=== PATIENT | female | born 1960 | race Caucasian/White ===

== ENCOUNTER 2016-09-07 12:42 | Inpatient (IN) | payer MEDICAID, OTHER ==
[2016-09-07] MEDS ORDERED: ADENOCARD INJ 6 MG IVP ONE (12:56)
[2016-09-07] MEDS ORDERED: NS 1000 ML 1,000 ML ONE (12:56)
--- NOTE | 2016-09-07 12:57 | DR.GENAD ---
HPI - PCP Primary Care Physician: Orestes - Complaint/Symptoms Chief Complaint Doctors Comments: Patient states that her hear is beating fast. She states that she should have come in on yesterday but thought it would have stop by now. She denies fever, vomiting or diarrhea. PMH - PMH Past Medical History: Anxiety, Depression Past Surgical History: Yes Surgical History: Hysterectomy - Family History Family Medical History: [place], Coronary Artery Disease - Social History Do you use any recreational Drugs:: No ROS - Review of Systems Constitutional: No Symptoms Reported. negative: Diaphoresis Eyes: No Symptoms Reported ENTM: No Symptoms Reported Respiratoy: No Symptoms Reported Cardiovascular: No Symptoms Reported Gastrointestinal/Abdominal: No Symptoms Reported Genitourinary: No Symptoms Reported Neurological: No Symptoms Reported Musculoskeletal: No Symptoms Reported Integumentary: No Symptoms Reported Hematologic/Lymphatic: No Symptoms Reported Endocrine: No Symptoms Reported Psychiatric: No Symptoms Reported All Other Systems: Reviewed and Negative PE - Vital Signs Vitals: Temperature 98.6 F Pulse Rate [Brachial] 69 Pulse Rate 190 Respiratory Rate 18 Blood Pressure [Right Arm] 110/67 Blood Pressure [Left Arm] 100/59 Blood Pressure 98/63 O2 Sat by Pulse Oximetry 100 - General Limitations: No Limitations General Appearance: Alert, In No Apparent Distress - Head Head Exam: Normal Inspection, Atraumatic - Eyes Eye exam: Normal Appearance, PERRL, EOMI - ENT ENT Exam: Normal Exam External Ear Exam: Normal External Inspection TM/Canal Exam: Bilateral Normal Nose Exam: Normal Nose Exam Mouth Exam: Normal Inspection Throat Exam: Normal Inspection - Neck Neck Exam: Normal Inspection, Full ROM - Chest Chest Inspection: Normal Inspection - Respiratory Respiratory Exam: Normal Lung Sounds Bilat Respiratory Exam: Bilateral Clear to Auscultation - Cardiovascular Cardiovascular Exam: Regular Rate, Normal Rhythm, Bradycardia - Abdominal Exam Abdominal Exam: Normal Inspection Abdominal Tenderness: negative: RUQ, RLQ, LUQ, LLQ, Epigastrium, Suprapubic, Diffuse, Mild, Moderate, Severe, Other - Extremities Extremities Exam: Normal Inspection - Back Back Exam: Normal Inspection - Neurologic Neurological Exam: Alert, Oriented X3, CN II-XII Intact - Psychiatric Psychiatric Exam: Normal Affect - Skin Skin Exam: Warm, Dry, Intact Course - Treatment Treatment: Adenosine x1,NS; CTA secondary to elevated D Dimer-Impression: No CT evidence of pulmionary embolus in apreciated.-large amount of stool seen within the visualized ortions of the desconding colon. - Reevaluation 1st: Improved - Consultation Called: 16:00 (Dr Franco returned called-agreed to admit for observationn) ROR - Labs Reviewed Result Diagrams: 09/07/16 13:04 09/07/16 13:04 Laboratory: WBC 7.4 X10^3/uL (3.6-10.0) 09/07/16 13:04 RBC 4.04 X10^6/uL (3.5-5.4) 09/07/16 13:04 Hgb 9.3 g/dL (12.0-16.0) L 09/07/16 13:04 Hct 30.5 % (36.0-47.0) L 09/07/16 13:04 MCV 75.5 fL (80.0-100.0) L 09/07/16 13:04 MCH 23.1 pg (27.0-34.0) L 09/07/16 13:04 MCHC 30.6 g/dL (33.0-35.0) L 09/07/16 13:04 RDW 22.7 % (11.6-16.5) H 09/07/16 13:04 Plt Count 370 X10^3/uL (150.0-450.0) 09/07/16 13:04 Plt Count Comment Adequate (ADEQUATE) 09/07/16 13:04 MPV 9.5 fL (7.4-11.0) 09/07/16 13:04 Neut % 61.5 % (42.0-75.0) 09/07/16 13:04 Lymph % 29.6 % (21.0-51.0) 09/07/16 13:04 [place] % 5.5 % (0.0-13.0) 09/07/16 13:04 Eos % 2.7 % (0.9-2.9) 09/07/16 13:04 Baso % 0.7 % (0.2-1.0) 09/07/16 13:04 Neut # 4.6 x10^3/uL (2.2-4.8) 09/07/16 13:04 Lymph # 2.2 X10^3/uL (1.3-2.9) 09/07/16 13:04 [place] # 0.4 x10^3/uL (0.3-0.8) 09/07/16 13:04 Eos # 0.2 x10^3/uL (0.0-0.2) 09/07/16 13:04 Baso # 0.1 X10^3/uL (0.0-0.1) 09/07/16 13:04 Absolute Nucleated RBC 0.0 /100WBC 09/07/16 13:04 Plt Morphology Comment Normal (NORMAL) 09/07/16 13:04 RBC Morphology Abnormal (NORMAL) A 09/07/16 13:04 Hypochromasia 2+ A 09/07/16 13:04 Poikilocytosis 1+ A 09/07/16 13:04 Anisocytosis 1+ A 09/07/16 13:04 Microcytosis 1+ A 09/07/16 13:04 INR Target Range - 09/07/16 13:04 INR 1.02 (0.8-1.3) 09/07/16 13:04 PTT 27.2 SECONDS (22.9-36.5) 09/07/16 13:04 PTT Comment - 09/07/16 13:04 D-Dimer 967 ng/mL (0-400) H* 09/07/16 13:04 Sodium 140 mmol/L (136-145) 09/07/16 13:04 Corrected Sodium 141 mmol/L (136-145) 09/07/16 13:04 Potassium 3.9 mmol/L (3.5-5.1) 09/07/16 13:04 Chloride 106 mmol/L (98-107) 09/07/16 13:04 Carbon Dioxide 25.9 mmol/L (21-32) 09/07/16 13:04 BUN 15 mg/dL (7-18) 09/07/16 13:04 Creatinine 1.14 mg/dL (0.55-1.02) H 09/07/16 13:04 Est GFR (MDRD) Af Amer > 60 (>60) 09/07/16 13:04 Est GFR (MDRD) Non-Af 53 (>60) L 09/07/16 13:04 Glucose 135 mg/dL (65-99) H 09/07/16 13:04 Calcium 9.4 mg/dL (8.5-10.1) 09/07/16 13:04 Corrected Calcium TNP 09/07/16 13:04 Magnesium 1.7 mg/dL (1.7-2.9) 09/07/16 13:04 Total Bilirubin 0.40 mg/dL (0.2-1.0) 09/07/16 13:04 AST 114 Units/L (15-37) H 09/07/16 13:04 ALT 53 Units/L (12-78) 09/07/16 13:04 Alkaline Phosphatase 289 Units/L (46-116) H 09/07/16 13:04 Creatine Kinase 75 Units/L (26-192) 09/07/16 13:04 CK-MB (CK-2) < 1.0 ng/mL (0-4.0) 09/07/16 13:04 CK/CKMB % Calc 1.3 % (<4) 09/07/16 13:04 Troponin I < 0.02 ng/mL (0-1.5) 09/07/16 13:04 Total Protein 7.9 g/dL (6.4-8.2) 09/07/16 13:04 Albumin 3.6 g/dL (3.4-5.0) 09/07/16 13:04 Globulin 4.3 g/dL (2.5-4.5) 09/07/16 13:04 Albumin/Globulin Ratio 0.8 Ratio (1.1-2.1) L 09/07/16 13:04 - XRAY XRAY Interpreted by: Radiologist - Diagnosis Discharge Problem: SVT (supraventricular tachycardia) - Discharge Plan Condition: Stable - Follow ups/Referrals Follow ups/Referrals: ANA LAURA RAI [Primary Care Provider] - 3 days - Instructions
[2016-09-07 13:10] LABS: BASOPHILS # (AUTO) 0.1 X10^3/uL (0.0-0.1); BASOPHILS % (AUTO) 0.7 % (0.2-1.0); EOSINOPHILS # (AUTO) 0.2 x10^3/uL (0.0-0.2); EOSINOPHILS % (AUTO) 2.7 % (0.9-2.9); HEMATOCRIT 30.5 % (36.0-47.0); HEMOGLOBIN 9.3 g/dL (12.0-16.0); LYMPHOCYTES # (AUTO) 2.2 X10^3/uL (1.3-2.9); LYMPHOCYTES % (AUTO) 29.6 % (21.0-51.0); MEAN CORPUSCULAR HEMOGLOBIN 23.1 pg (27.0-34.0); MEAN CORPUSCULAR HGB CONC 30.6 g/dL (33.0-35.0); MEAN CORPUSCULAR VOLUME 75.5 fL (80.0-100.0); MEAN PLATELET VOLUME 9.5 fL (7.4-11.0); MONOCYTES # (AUTO) 0.4 x10^3/uL (0.3-0.8); MONOCYTES % (AUTO) 5.5 % (0.0-13.0); NEUTROPHILS # (AUTO) 4.6 x10^3/uL (2.2-4.8); NEUTROPHILS % (AUTO) 61.5 % (42.0-75.0); PLATELET COUNT 370 X10^3/uL (150.0-450.0); RED BLOOD COUNT 4.04 X10^6/uL (3.5-5.4); RED CELL DISTRIBUTION WIDTH 22.7 % (11.6-16.5); WHITE BLOOD COUNT 7.4 X10^3/uL (3.6-10.0)
[2016-09-07 13:25] LABS: ANISOCYTOSIS 1+; HYPOCHROMASIA 2+; PLATELET MORPHOLOGY COMMENT NORMAL (NORMAL); POIKILOCYTOSIS 1+
[2016-09-07 13:26] LABS: ALBUMIN 3.6 g/dL (3.4-5.0); CHLORIDE 106 mmol/L (98-107); CREATININE 1.14 mg/dL (0.55-1.02); MAGNESIUM 1.7 mg/dL (1.7-2.9); MICROCYTOSIS 1+; eGFR BLACK RACES > 60 (>60); eGFR NON BLACK RACES 53 (>60)
--- NOTE | 2016-09-07 13:27 | RAD ---
Single view chest series: Indication: Chest pain, shortness of breath. Comparison: Acute abdominal series dated January 16, 2013. Findings/impression: Lung volumes are normal without acute cardiopulmonary abnormality. There is no cardiomegaly. The osseous thorax is unremarkable. Reported By:
[2016-09-07 13:43] LABS: BLOOD UREA NITROGEN 15 mg/dL (7-18); CALCIUM 9.4 mg/dL (8.5-10.1); CARBON DIOXIDE 25.9 mmol/L (21-32); COR NA(FOR HYPERGLY) 141 mmol/L (136-145); GLUCOSE 135 mg/dL (65-99); SODIUM 140 mmol/L (136-145); TROPONIN I < 0.02 ng/mL (0-1.5)
[2016-09-07 13:49] LABS: ALANINE AMINOTRANSFERASE 53 Units/L (12-78); ALKALINE PHOSPHATASE 289 Units/L (46-116); ASPARTATE AMINO TRANSFERASE 114 Units/L (15-37); CREATINE KINASE 75 Units/L (26-192); CREATINE KINASE MB < 1.0 ng/mL (0-4.0); TOTAL PROTEIN 7.9 g/dL (6.4-8.2)
[2016-09-07 13:50] LABS: D DIMER 967 ng/mL (0-400)
[2016-09-07 13:53] LABS: CKMB % 1.3 % (<4)
[2016-09-07] MEDS ORDERED: NS 1000 ML 1,000 ML IV SCH (14:00)
[2016-09-07] MEDS ORDERED: NS 100 ML IV 100 ML IV ONE (14:26)
--- NOTE | 2016-09-07 14:59 | CT ---
HISTORY: Elevated D-dimer, elevated heart rate Study: CT chest with contrast Comparison: None Technique: Multiple axial images of the chest were obtained from the thoracic inlet to the upper abd omen with the administration of IV contrast. Coronal and sagittal reformatted 3 dimensional MIP imag es were also submitted utilizing CTA protocol. Findings: Scattered subcentimeter lymph nodes are seen within the mediastinum. There is no pericardial effusi on observed. The thoracic aorta is normal in its contour without evidence for aneurysmal dilatation . No definite filling defects are appreciated within the 1st or 2nd order branches of the pulmonary arterial system. Atelectasis is noted within the lung bases. Evaluation of the lung parenchyma fail s to demonstrate focal consolidation or effusion. Postoperative changes of the [place] sided region are noted. Surgical clips are noted within the gallbladder fossa. Fluid and pain suspected large randal unt of stool are seen within the visualized portions of the descending colon. IMPRESSION: 1. No CT evidence of pulmonary embolus is appreciated. Reported By:
[2016-09-07] MEDS ORDERED: ZOFRAN INJ 4 MG VIAL IVP PRN (16:31)
[2016-09-07] MEDS ORDERED: NS 1000 ML 1,000 ML with POTASSIUM CHLORIDE INJ 20 MEQ VIAL 20 MEQ IV SCH ×2 (17:00)
[2016-09-07] MEDS ORDERED: NS + KCL 20 MEQ/L 1,000 ML IV ONE (17:32)
[2016-09-07] MEDS ORDERED: LEXAPRO ONE (20:40)
[2016-09-07] MEDS: WELLBUTRIN SR 150 MG (BID) PO SCH (20:43)
[2016-09-07] MEDS: LEXAPRO PO SCH (20:44)
[2016-09-07] MEDS: LOPRESSOR TAB 25 MG PO SCH (20:44)
[2016-09-07] MEDS: CITROMA PO SCH (20:44)
[2016-09-07] MEDS: SUBOXONE TAB SL SCH (21:51)
[2016-09-07] MEDS: XANAX PO SCH (21:52)
[2016-09-07] MEDS: NEURONTIN CAP 400 MG PO SCH (22:23)
[2016-09-08] MEDS: NS + KCL 20 MEQ/L 1,000 ML IV SCH ×3 (01:47→18:41)
[2016-09-08 05:05] LABS: BASOPHILS % (AUTO) 0.3 % (0.2-1.0); EOSINOPHILS # (AUTO) 0.1 x10^3/uL (0.0-0.2); EOSINOPHILS % (AUTO) 2.6 % (0.9-2.9); HEMATOCRIT 25.8 % (36.0-47.0); HEMOGLOBIN 7.8 g/dL (12.0-16.0); LYMPHOCYTES # (AUTO) 1.7 X10^3/uL (1.3-2.9); LYMPHOCYTES % (AUTO) 30.9 % (21.0-51.0); MEAN CORPUSCULAR HEMOGLOBIN 23.2 pg (27.0-34.0); MEAN CORPUSCULAR HGB CONC 30.2 g/dL (33.0-35.0); MEAN CORPUSCULAR VOLUME 76.9 fL (80.0-100.0); MEAN PLATELET VOLUME 10.4 fL (7.4-11.0); MONOCYTES # (AUTO) 0.5 x10^3/uL (0.3-0.8); MONOCYTES % (AUTO) 9.3 % (0.0-13.0); NEUTROPHILS # (AUTO) 3.2 x10^3/uL (2.2-4.8); NEUTROPHILS % (AUTO) 56.9 % (42.0-75.0); PLATELET COUNT 276 X10^3/uL (150.0-450.0); RED BLOOD COUNT 3.35 X10^6/uL (3.5-5.4); RED CELL DISTRIBUTION WIDTH 22.7 % (11.6-16.5); WHITE BLOOD COUNT 5.6 X10^3/uL (3.6-10.0)
[2016-09-08 05:20] LABS: ALANINE AMINOTRANSFERASE 146 Units/L (12-78); ALBUMIN 2.8 g/dL (3.4-5.0); ALKALINE PHOSPHATASE 353 Units/L (46-116); ASPARTATE AMINO TRANSFERASE 327 Units/L (15-37); BLOOD UREA NITROGEN 14 mg/dL (7-18); CALCIUM 8.1 mg/dL (8.5-10.1); CARBON DIOXIDE 27.3 mmol/L (21-32); CHLORIDE 109 mmol/L (98-107); COR CA(FOR HYPOALB) 9.1 mg/dL (8.5-10.1); CREATININE 0.81 mg/dL (0.55-1.02); GLUCOSE 92 mg/dL (65-99); SODIUM 142 mmol/L (136-145); TOTAL PROTEIN 6.4 g/dL (6.4-8.2); eGFR BLACK RACES > 60 (>60); eGFR NON BLACK RACES > 60 (>60)
[2016-09-08 05:34] LABS: ANISOCYTOSIS 2+; HYPOCHROMASIA 1+; PLATELET MORPHOLOGY COMMENT NORMAL (NORMAL)
[2016-09-08] MEDS: NEURONTIN CAP 400 MG PO SCH ×3 (05:40→21:00)
[2016-09-08] MEDS ORDERED: LEXAPRO ONE ×3 (08:54→20:29)
[2016-09-08] MEDS: LEXAPRO PO SCH ×2 (09:14→21:01)
[2016-09-08] MEDS: XANAX PO SCH ×2 (09:15→21:01)
[2016-09-08] MEDS: SUBOXONE TAB SL SCH ×2 (09:15→21:04)
[2016-09-08] MEDS: WELLBUTRIN SR 150 MG (BID) PO SCH ×2 (09:15→21:00)
[2016-09-08] MEDS: LOPRESSOR TAB 25 MG PO SCH ×2 (09:18→21:04)
--- NOTE | 2016-09-08 19:23 | DR.H&P ---
H&P - History & Physical for Day of: H&P Date: 09/08/16 - Chief Complaint Chief Complaint: HEART RACING - Allergies Allergies/Adverse Reactions: Allergies Allergy/AdvReac Type Severity Reaction Status Date / Time morphine Allergy Verified 09/07/16 17:22 prochlorperazine Allergy Verified 09/07/16 17:22 [From Compazine] Sulfa (Sulfonamide Allergy Verified 09/07/16 17:22 Antibiotics) [SULFA] - History of Present Illness History of Present Illness: Mrs. Washington is a 56-year-old white female who was admitted from the emergency room. Patient was noted to be in SVT on arrival and was treated with adenosine IV. Patient returned to normal sinus rhythm on EKG. Patient states she has had multiple episodes of SVT in the past however has never seen a formula room worker or had an echocardiogram. Plan to admit patient for further evaluation. Patient's past medical history is a gastric bypass and and a long history of anemia. - Past Medical History Past Medical History: Anxiety, Depression - Past Surgical History Surgical History: Cholecystectomy, Hysterectomy, Other - Family History Family Medical History: [place], Coronary Artery Disease - Social History Does patient currently use any type of tobacco product: Yes Have you used tobacco products in the last 12 months: Yes Type of Tobacco Use: Cigarettes Does any household member use tobacco: No Alcohol Use: None Drug Use: None - Medications Home Medications: Alprazolam [Xanax 1 mg] 1 tab PO BID 09/07/16 [History Confirmed 09/07/16] Buprenorphine / Naloxone [SUBOXONE TABLET 8 MG/2 MG *] 1 ea PO BID 09/07/16 [ History Confirmed 09/07/16] Bupropion Sr (Bid) [Wellbutrin Sr 150 mg (Bid)] 150 mg PO BID 09/07/16 [History Confirmed 09/07/16] Escitalopram Oxalate [Lexapro 20 mg] 20 mg PO BID 09/07/16 [History Confirmed ] Metoprolol Tartrate [Lopressor Tab 25 mg] 25 mg PO BID 09/07/16 [History Confirmed 09/07/16] Misc Home Med [Patient's Home Medication] 1 ea PO BID PRN 09/07/16 [History Confirmed 09/07/16] - Review of Systems Constitutional: Weakness ENT: No Symptoms Reported Respiratory: Shortness of Breath Cardiovascular: Chest Pain, Palpitations Gastrointestinal: No Symptoms Reported Genitourinary: No Symptoms Reported Musculoskeletal: No Symptoms Reported Skin: No Symptoms Reported Neurological: No Symptoms Reported - Physical Exam Vital Signs: Temperature 97.7 F Pulse Rate [Brachial] 54 Respiratory Rate 18 Blood Pressure [Right Arm] 99/58 O2 Sat by Pulse Oximetry 96 Oriented: Normal Eyes: Normal Ear: Normal Nose: Normal Throat: Normal Respiratory: Clear Throughout Cardiovascular: Tachycardia Auscultation: Bowel Sounds: Normal Palpation: Normal Tenderness: Normal Skin: Normal Musculoskeletal: Normal Psychiatric: Anxiety, Depression Speech Pattern: Clear, Appropriate - Assessment/Plan (1) Chest pain Qualifiers: Chest pain type: C Ischemic chest pain type: I Status: Acute Plan: ADMIT, CARDIAC MONITORING, IV HYDRATION, SERIAL EKG'S CARDIAC ENZYMES, MONITOR BP AND LIPID (2) SVT (supraventricular tachycardia) Status: Acute (3) Constipation Qualifiers: Constipation type: C Status: Acute (4) Anemia Qualifiers: Anemia type: A Iron deficiency anemia type: I Vitamin B12 deficiency anemia type: V Folate deficiency anemia type: F Bone marrow failure anemia type: B Hemolytic anemia type: H Other causes of anemia: O Chronic kidney disease stage: C Status: Acute
--- NOTE | 2016-09-08 19:28 | PCM.PROG ---
Progress Note - Progress Note for Day of Date: 09/08/16 - Subjective Subjective: patient is a 56-year-old white female who was admitted one day ago with a new complaint of chest pain, palpitations, SVT. Patient was treated for SVT in the emergency room, currently normal sinus rhythm. Patient was noted to have anemia this morning hemoglobin 7.8. Plan to obtain an anemia panel, thyroid studies, echocardiogram and occult stool. - Past Medical Family Social History Past Med/Fam/Surg Hx: No changes since H&P Allergies: Allergies morphine Allergy (Verified 09/07/16 17:22) prochlorperazine [From Compazine] Allergy (Verified 09/07/16 17:22) Sulfa (Sulfonamide Antibiotics) [SULFA] Allergy (Verified 09/07/16 17:22) - Review of Systems ROS: No change since H&P - Vital Signs and I&O's Vital Signs: Temperature 97.7 F Pulse Rate [Brachial] 54 Respiratory Rate 18 Blood Pressure [Right Arm] 99/58 O2 Sat by Pulse Oximetry 96 Intake and Output: Intake & Output 09/06/16 09/07/16 09/08/16 09/09/16 11:59 11:59 11:59 11:59 Intake Total 2220 924 Balance 2220 924 - Physical Exam Oriented: Normal Eyes: Normal Ear: Normal Nose: Normal Throat: Normal Respiratory: Normal Cardiovascular: Tachycardia Auscultation: Bowel Sounds: Normal Tenderness: Normal Skin: Normal Musculoskeletal: Normal Psychiatric: Anxiety, Depression Speech Pattern: Clear, Appropriate - Laboratory and Diagnostics Result Diagrams: 09/08/16 04:00 09/08/16 04:00 Labs: Laboratory WBC 5.6 X10^3/uL (3.6-10.0) 09/08/16 04:00 RBC 3.35 X10^6/uL (3.5-5.4) L 09/08/16 04:00 Hgb 7.8 g/dL (12.0-16.0) L 09/08/16 04:00 Hct 25.8 % (36.0-47.0) L 09/08/16 04:00 MCV 76.9 fL (80.0-100.0) L 09/08/16 04:00 MCH 23.2 pg (27.0-34.0) L 09/08/16 04:00 MCHC 30.2 g/dL (33.0-35.0) L 09/08/16 04:00 RDW 22.7 % (11.6-16.5) H 09/08/16 04:00 Plt Count 276 X10^3/uL (150.0-450.0) 09/08/16 04:00 Plt Count Comment Adequate (ADEQUATE) 09/08/16 04:00 MPV 10.4 fL (7.4-11.0) 09/08/16 04:00 Neut % 56.9 % (42.0-75.0) 09/08/16 04:00 Lymph % 30.9 % (21.0-51.0) 09/08/16 04:00 [place] % 9.3 % (0.0-13.0) 09/08/16 04:00 Eos % 2.6 % (0.9-2.9) 09/08/16 04:00 Baso % 0.3 % (0.2-1.0) 09/08/16 04:00 Neut # 3.2 x10^3/uL (2.2-4.8) 09/08/16 04:00 Lymph # 1.7 X10^3/uL (1.3-2.9) 09/08/16 04:00 [place] # 0.5 x10^3/uL (0.3-0.8) 09/08/16 04:00 Eos # 0.1 x10^3/uL (0.0-0.2) 09/08/16 04:00 Baso # 0.0 X10^3/uL (0.0-0.1) 09/08/16 04:00 Absolute Nucleated RBC 0.0 /100WBC 09/08/16 04:00 Plt Morphology Comment Normal (NORMAL) 09/08/16 04:00 RBC Morphology Abnormal (NORMAL) A 09/08/16 04:00 Hypochromasia 1+ A 09/08/16 04:00 Poikilocytosis 1+ A 09/07/16 13:04 Anisocytosis 2+ A 09/08/16 04:00 Microcytosis 1+ A 09/07/16 13:04 INR Target Range - 09/07/16 13:04 INR 1.02 (0.8-1.3) 09/07/16 13:04 PTT 27.2 SECONDS (22.9-36.5) 09/07/16 13:04 PTT Comment - 09/07/16 13:04 D-Dimer 967 ng/mL (0-400) H* 09/07/16 13:04 Sodium 142 mmol/L (136-145) 09/08/16 04:00 Corrected Sodium TNP 09/08/16 04:00 Potassium 4.5 mmol/L (3.5-5.1) 09/08/16 04:00 Chloride 109 mmol/L (98-107) H 09/08/16 04:00 Carbon Dioxide 27.3 mmol/L (21-32) 09/08/16 04:00 BUN 14 mg/dL (7-18) 09/08/16 04:00 Creatinine 0.81 mg/dL (0.55-1.02) 09/08/16 04:00 Est GFR (MDRD) Af Amer > 60 (>60) 09/08/16 04:00 Est GFR (MDRD) Non-Af > 60 (>60) 09/08/16 04:00 Glucose 92 mg/dL (65-99) 09/08/16 04:00 Calcium 8.1 mg/dL (8.5-10.1) L 09/08/16 04:00 Corrected Calcium 9.1 mg/dL (8.5-10.1) 09/08/16 04:00 Magnesium 1.7 mg/dL (1.7-2.9) 09/07/16 13:04 Total Bilirubin 0.30 mg/dL (0.2-1.0) 09/08/16 04:00 AST 327 Units/L (15-37) H 09/08/16 04:00 ALT 146 Units/L (12-78) H 09/08/16 04:00 Alkaline Phosphatase 353 Units/L (46-116) H 09/08/16 04:00 Creatine Kinase 75 Units/L (26-192) 09/07/16 13:04 CK-MB (CK-2) < 1.0 ng/mL (0-4.0) 09/07/16 13:04 CK/CKMB % Calc 1.3 % (<4) 09/07/16 13:04 Troponin I < 0.02 ng/mL (0-1.5) 09/07/16 13:04 Total Protein 6.4 g/dL (6.4-8.2) 09/08/16 04:00 Albumin 2.8 g/dL (3.4-5.0) L 09/08/16 04:00 Globulin 3.6 g/dL (2.5-4.5) 09/08/16 04:00 Albumin/Globulin Ratio 0.8 Ratio (1.1-2.1) L 09/08/16 04:00 - Plan (1) Chest pain Status: Acute Qualifiers: Chest pain type: C Ischemic chest pain type: I Plan: continue telemetry, bp monitoring. ECHO, lipid control (2) SVT (supraventricular tachycardia) Status: Acute Plan: bb therapy (3) Constipation Status: Acute Qualifiers: Constipation type: C Plan: pt reports, BM, will collect stool spec (4) Anemia Status: Acute Qualifiers: Anemia type: A Iron deficiency anemia type: I Vitamin B12 deficiency anemia type: V Folate deficiency anemia type: F Bone marrow failure anemia type: B Hemolytic anemia type: H Other causes of anemia: O Chronic kidney disease stage: C Plan: anemia PANEL
[2016-09-08] MEDS ORDERED: XANAX PO PRN (19:38)
[2016-09-08 20:58] LABS: FREE T4 (FREE THYROXINE) 0.95 ng/dL (0.76-1.46); TSH (3RD GENERATION) 1.376 uIU/mL (0.358-3.74)
[2016-09-08] MEDS: CITROMA PO SCH (21:04)
[2016-09-08 22:15] VITALS: BMI 27.6
[2016-09-09] MEDS: NS + KCL 20 MEQ/L 1,000 ML IV SCH ×2 (03:35→11:46)
[2016-09-09] MEDS: NEURONTIN CAP 400 MG PO SCH ×3 (05:35→21:00)
[2016-09-09 05:39] LABS: ALANINE AMINOTRANSFERASE 112 Units/L (12-78); ALBUMIN 2.9 g/dL (3.4-5.0); ALKALINE PHOSPHATASE 363 Units/L (46-116); ASPARTATE AMINO TRANSFERASE 120 Units/L (15-37); BLOOD UREA NITROGEN 14 mg/dL (7-18); CALCIUM 8.4 mg/dL (8.5-10.1); CARBON DIOXIDE 26.5 mmol/L (21-32); CHLORIDE 111 mmol/L (98-107); COR CA(FOR HYPOALB) 9.3 mg/dL (8.5-10.1); CREATININE 0.92 mg/dL (0.55-1.02); GLUCOSE 81 mg/dL (65-99); SODIUM 144 mmol/L (136-145); TOTAL PROTEIN 6.5 g/dL (6.4-8.2); eGFR BLACK RACES > 60 (>60); eGFR NON BLACK RACES > 60 (>60)
[2016-09-09 05:43] LABS: BASOPHILS % (AUTO) 0.4 % (0.2-1.0); EOSINOPHILS # (AUTO) 0.3 x10^3/uL (0.0-0.2); EOSINOPHILS % (AUTO) 5.9 % (0.9-2.9); HEMATOCRIT 26.7 % (36.0-47.0); LYMPHOCYTES # (AUTO) 1.7 X10^3/uL (1.3-2.9); LYMPHOCYTES % (AUTO) 35.2 % (21.0-51.0); MEAN CORPUSCULAR HEMOGLOBIN 23.1 pg (27.0-34.0); MEAN CORPUSCULAR HGB CONC 30.1 g/dL (33.0-35.0); MEAN CORPUSCULAR VOLUME 76.8 fL (80.0-100.0); MEAN PLATELET VOLUME 10.5 fL (7.4-11.0); MONOCYTES # (AUTO) 0.4 x10^3/uL (0.3-0.8); MONOCYTES % (AUTO) 8.2 % (0.0-13.0); NEUTROPHILS # (AUTO) 2.4 x10^3/uL (2.2-4.8); NEUTROPHILS % (AUTO) 50.3 % (42.0-75.0); PLATELET COUNT 237 X10^3/uL (150.0-450.0); RED BLOOD COUNT 3.47 X10^6/uL (3.5-5.4); RED CELL DISTRIBUTION WIDTH 22.5 % (11.6-16.5); WHITE BLOOD COUNT 4.8 X10^3/uL (3.6-10.0)
[2016-09-09 05:52] LABS: ANISOCYTOSIS 2+; HYPOCHROMASIA 1+; PLATELET MORPHOLOGY COMMENT NORMAL (NORMAL)
[2016-09-09] MEDS ORDERED: LEXAPRO ONE ×2 (08:15→20:46)
[2016-09-09] MEDS: XANAX PO SCH ×2 (08:22→21:00)
[2016-09-09] MEDS: SUBOXONE TAB SL SCH ×2 (08:22→20:59)
[2016-09-09] MEDS: LEXAPRO PO SCH ×2 (08:22→20:59)
[2016-09-09] MEDS: WELLBUTRIN SR 150 MG (BID) PO SCH ×2 (08:23→20:59)
[2016-09-09] MEDS: LOPRESSOR TAB 25 MG PO SCH ×3 (08:24→21:03)
[2016-09-09] MEDS ORDERED: NS 100 ML IV 100 ML with VENOFER 200 MG IV NR ×2 (15:00)
[2016-09-10 05:26] LABS: ALANINE AMINOTRANSFERASE 72 Units/L (12-78); ALBUMIN 2.8 g/dL (3.4-5.0); ALKALINE PHOSPHATASE 323 Units/L (46-116); ASPARTATE AMINO TRANSFERASE 53 Units/L (15-37); BLOOD UREA NITROGEN 12 mg/dL (7-18); CALCIUM 8.4 mg/dL (8.5-10.1); CARBON DIOXIDE 26.5 mmol/L (21-32); CHLORIDE 106 mmol/L (98-107); COR CA(FOR HYPOALB) 9.4 mg/dL (8.5-10.1); CREATININE 0.91 mg/dL (0.55-1.02); GLUCOSE 86 mg/dL (65-99); SODIUM 139 mmol/L (136-145); TOTAL PROTEIN 6.4 g/dL (6.4-8.2); eGFR BLACK RACES > 60 (>60); eGFR NON BLACK RACES > 60 (>60)
[2016-09-10 05:29] LABS: BASOPHILS # (AUTO) 0.1 X10^3/uL (0.0-0.1); BASOPHILS % (AUTO) 0.8 % (0.2-1.0); EOSINOPHILS # (AUTO) 0.3 x10^3/uL (0.0-0.2); EOSINOPHILS % (AUTO) 5.1 % (0.9-2.9); HEMATOCRIT 24.4 % (36.0-47.0); HEMOGLOBIN 7.6 g/dL (12.0-16.0); LYMPHOCYTES # (AUTO) 0.9 X10^3/uL (1.3-2.9); LYMPHOCYTES % (AUTO) 13.5 % (21.0-51.0); MEAN CORPUSCULAR HEMOGLOBIN 23.6 pg (27.0-34.0); MEAN CORPUSCULAR HGB CONC 31.2 g/dL (33.0-35.0); MEAN CORPUSCULAR VOLUME 75.5 fL (80.0-100.0); MEAN PLATELET VOLUME 10.4 fL (7.4-11.0); MONOCYTES # (AUTO) 0.4 x10^3/uL (0.3-0.8); MONOCYTES % (AUTO) 6.6 % (0.0-13.0); NEUTROPHILS # (AUTO) 4.8 x10^3/uL (2.2-4.8); PLATELET COUNT 255 X10^3/uL (150.0-450.0); RED BLOOD COUNT 3.23 X10^6/uL (3.5-5.4); RED CELL DISTRIBUTION WIDTH 22.3 % (11.6-16.5); WHITE BLOOD COUNT 6.5 X10^3/uL (3.6-10.0)
[2016-09-10] MEDS: NEURONTIN CAP 400 MG PO SCH (05:30)
[2016-09-10] MEDS: CITROMA PO SCH (05:31)
[2016-09-10] MEDS: NS + KCL 20 MEQ/L 1,000 ML IV SCH (05:46)
[2016-09-10 05:50] LABS: ANISOCYTOSIS 2+; HYPOCHROMASIA 1+; PLATELET MORPHOLOGY COMMENT NORMAL (NORMAL)
--- NOTE | 2016-09-10 10:45 | MRI ---
HISTORY: Elevated liver enzymes. Study: MRI abdomen without contrast. MRCP sequences were also performed. Comparison: CT chest dated September 07, 2016. Technique: Multiplanar/multi sequence imaging of the abdomen without contrast. MRCP sequences were a lso performed. Several sequences were mislabeled as pre contrast. Findings: Postsurgical changes of the upper abdomen. The gallbladder is surgically absent. The visualized live r, spleen, pancreas, adrenals, and kidneys appear normal. The common bile duct is dilated to 15 mm w ithout obvious stricture, stone, or mass. The visualized large and small bowel appear normal. The vi sualized heart and lungs appear normal. The musculoskeletal and neurovascular structures appear norm al. MRCP: Dilatation of the common bile duct to 15 mm. This is most likely secondary to prior cholecyste ctomy. No obvious stricture, obstructing mass, or obstructing stone. Remaining biliary system and pa ncreatic duct appear normal. IMPRESSION: 1. Nonspecific dilatation of the common bile duct to 15 mm. This most likely is secondary to prior cholecystectomy. No obvious stricture, mass, or stone. 2. Remaining exam is unremarkable. Reported By:
[2016-09-10] MEDS ORDERED: NS 100 ML IV 100 ML IV ONE (11:21)
[2016-09-10] MEDS ORDERED: LEXAPRO ONE (12:54)
--- NOTE | 2016-09-10 13:28 | CT ---
CT abdomen pelvis with contrast Indication: Abdominal pain with elevated LFTs Technique: Helical CT images of the abdomen and pelvis were obtained with IV contrast. Reformatted i mages in the coronal and sagittal planes were also generated for review. Comparison: MRI abdomen September 10, 2016 Findings: Apart from dependent atelectasis, the visualized lung bases are clear. No aggressive osseo us lesions are identified. The gallbladder is surgically absent. There is moderate intra as well as extrahepatic biliary dilata tion, with the common bile duct measuring up to 1.5 cm in diameter, but tapering normally at the lev el of the ampulla. Mild dilatation of the pancreatic duct within the pancreatic head is also seen. N o discrete mass, upstream pancreatic ductal dilatation or associated pancreatic atrophy is appreciat ed. The liver, spleen, adrenals and kidneys are unremarkable. The patient is post gastric by-pass. The G I tract, including the appendix is otherwise normal. The IVC, abdominal aorta and urinary bladder ar e normal. The patient is post hysterectomy. No free air, free fluid or lymphadenopathy is identified . Impression: Moderate intra and extrahepatic biliary dilatation as well as mild dilation of the distal pancreatic duct. Although findings may be related to prior cholecystectomy, given patient history of elevated LFTs, a stricture at the level of the ampulla cannot be excluded. Further evaluation with ERCP is re commended as clinically indicated. Reported By:
[2016-09-10 16:13] VITALS: BP 120/76
--- NOTE | 2016-09-10 18:02 | PCM.PROG ---
Progress Note - Progress Note for Day of Date: 09/10/16 - Subjective Subjective: patient is a 56-year-old white female who was admitted one day ago with a new complaint of chest pain, palpitations, SVT. Patient was treated for SVT in the emergency room, currently normal sinus rhythm. Pt was noted to be anemic with hx of gastric bypass. Pt NPO for edg per dr kauffman. Plan to obtain MRCP q am - Past Medical Family Social History Past Med/Fam/Surg Hx: No changes since H&P Allergies: Allergies morphine Allergy (Verified 09/07/16 17:22) prochlorperazine [From Compazine] Allergy (Verified 09/07/16 17:22) Sulfa (Sulfonamide Antibiotics) [SULFA] Allergy (Verified 09/07/16 17:22) - Review of Systems ROS: No change since H&P - Vital Signs and I&O's Vital Signs: Temperature 98 F Pulse Rate [Right Brachial] 58 Pulse Rate [Brachial] 69 Respiratory Rate 18 Blood Pressure [Right Arm] 120/76 Blood Pressure [Left Arm] 141/76 O2 Sat by Pulse Oximetry 92 Intake and Output: Intake & Output 09/08/16 09/09/16 09/10/16 09/11/16 11:59 11:59 11:59 11:59 Intake Total 2220 3284 1160 590 Balance 2220 3284 1160 590 - Physical Exam Oriented: Normal Eyes: Normal Ear: Normal Nose: Normal Throat: Normal Respiratory: Normal Cardiovascular: Tachycardia Auscultation: Bowel Sounds: Normal Tenderness: RUQ, LUQ, Epigastric Skin: Normal Musculoskeletal: Normal, Back:Lumbar Psychiatric: Anxiety, Depression Speech Pattern: Clear - Laboratory and Diagnostics Result Diagrams: 09/10/16 04:00 09/10/16 04:00 Labs: Laboratory WBC 6.5 X10^3/uL (3.6-10.0) 09/10/16 04:00 RBC 3.23 X10^6/uL (3.5-5.4) L 09/10/16 04:00 Hgb 7.6 g/dL (12.0-16.0) L 09/10/16 04:00 Hct 24.4 % (36.0-47.0) L 09/10/16 04:00 MCV 75.5 fL (80.0-100.0) L 09/10/16 04:00 MCH 23.6 pg (27.0-34.0) L 09/10/16 04:00 MCHC 31.2 g/dL (33.0-35.0) L 09/10/16 04:00 RDW 22.3 % (11.6-16.5) H 09/10/16 04:00 Plt Count 255 X10^3/uL (150.0-450.0) 09/10/16 04:00 Plt Count Comment Adequate (ADEQUATE) 09/10/16 04:00 MPV 10.4 fL (7.4-11.0) 09/10/16 04:00 Neut % 74.0 % (42.0-75.0) 09/10/16 04:00 Lymph % 13.5 % (21.0-51.0) L 09/10/16 04:00 [place] % 6.6 % (0.0-13.0) 09/10/16 04:00 Eos % 5.1 % (0.9-2.9) H 09/10/16 04:00 Baso % 0.8 % (0.2-1.0) 09/10/16 04:00 Neut # 4.8 x10^3/uL (2.2-4.8) 09/10/16 04:00 Lymph # 0.9 X10^3/uL (1.3-2.9) L 09/10/16 04:00 [place] # 0.4 x10^3/uL (0.3-0.8) 09/10/16 04:00 Eos # 0.3 x10^3/uL (0.0-0.2) H 09/10/16 04:00 Baso # 0.1 X10^3/uL (0.0-0.1) 09/10/16 04:00 Absolute Nucleated RBC 0.0 /100WBC 09/10/16 04:00 Plt Morphology Comment Normal (NORMAL) 09/10/16 04:00 RBC Morphology Abnormal (NORMAL) A 09/10/16 04:00 Hypochromasia 1+ A 09/10/16 04:00 Poikilocytosis 1+ A 09/07/16 13:04 Anisocytosis 2+ A 09/10/16 04:00 Microcytosis 1+ A 09/07/16 13:04 INR Target Range - 09/07/16 13:04 INR 1.02 (0.8-1.3) 09/07/16 13:04 PTT 27.2 SECONDS (22.9-36.5) 09/07/16 13:04 PTT Comment - 09/07/16 13:04 D-Dimer 967 ng/mL (0-400) H* 09/07/16 13:04 Sodium 139 mmol/L (136-145) 09/10/16 04:00 Corrected Sodium TNP 09/10/16 04:00 Potassium 4.5 mmol/L (3.5-5.1) 09/10/16 04:00 Chloride 106 mmol/L (98-107) 09/10/16 04:00 Carbon Dioxide 26.5 mmol/L (21-32) 09/10/16 04:00 BUN 12 mg/dL (7-18) 09/10/16 04:00 Creatinine 0.91 mg/dL (0.55-1.02) 09/10/16 04:00 Est GFR (MDRD) Af Amer > 60 (>60) 09/10/16 04:00 Est GFR (MDRD) Non-Af > 60 (>60) 09/10/16 04:00 Glucose 86 mg/dL (65-99) 09/10/16 04:00 Calcium 8.4 mg/dL (8.5-10.1) L 09/10/16 04:00 Corrected Calcium 9.4 mg/dL (8.5-10.1) 09/10/16 04:00 Magnesium 1.7 mg/dL (1.7-2.9) 09/07/16 13:04 Iron 14 ug/dL (50-175) L 09/08/16 04:00 Transferrin 291 mg/dL (202-364) 09/08/16 04:00 Ferritin 11 ng/mL (8-252) 09/08/16 04:00 Total Bilirubin 0.30 mg/dL (0.2-1.0) 09/10/16 04:00 AST 53 Units/L (15-37) H 09/10/16 04:00 ALT 72 Units/L (12-78) 09/10/16 04:00 Alkaline Phosphatase 323 Units/L (46-116) H 09/10/16 04:00 Creatine Kinase 75 Units/L (26-192) 09/07/16 13:04 CK-MB (CK-2) < 1.0 ng/mL (0-4.0) 09/07/16 13:04 CK/CKMB % Calc 1.3 % (<4) 09/07/16 13:04 Troponin I < 0.02 ng/mL (0-1.5) 09/07/16 13:04 Total Protein 6.4 g/dL (6.4-8.2) 09/10/16 04:00 Albumin 2.8 g/dL (3.4-5.0) L 09/10/16 04:00 Globulin 3.6 g/dL (2.5-4.5) 09/10/16 04:00 Albumin/Globulin Ratio 0.8 Ratio (1.1-2.1) L 09/10/16 04:00 Vitamin B12 340 pg/mL (193-986) 09/08/16 04:00 Folate 3.6 ng/mL (>8.6) L 09/08/16 04:00 Free T4 0.95 ng/dL (0.76-1.46) 09/08/16 04:00 TSH 3rd Generation 1.376 uIU/mL (0.358-3.74) 09/08/16 04:00 - Plan (1) Chest pain Status: Acute Qualifiers: Chest pain type: C Ischemic chest pain type: I Plan: deines cp this am, cardiacs normal. continue telemetry, bp monitoring. ECHO, lipid control (2) SVT (supraventricular tachycardia) Status: Acute Plan: bb therapy (3) Constipation Status: Acute Qualifiers: Constipation type: C Plan: pt reports, BM, will collect stool spec (4) Anemia Status: Acute Qualifiers: Anemia type: A Iron deficiency anemia type: I Vitamin B12 deficiency anemia type: V Folate deficiency anemia type: F Bone marrow failure anemia type: B Hemolytic anemia type: H Other causes of anemia: O Chronic kidney disease stage: C Plan: anemia PANEL (5) Epigastric pain Status: Acute Plan: hx anemia, gastric bypass. elevated liver enzymes. mrcp q am, npo for egd q am
--- NOTE | 2016-09-10 18:07 | PCM.PROG ---
Progress Note - Progress Note for Day of Date: 09/10/16 - Subjective Subjective: patient is a 56-year-old white female who was admitted one day ago with a new complaint of chest pain, palpitations, SVT. Patient was treated for SVT in the emergency room, currently normal sinus rhythm. MRCP this am due to elevated lft's. pt did not have EGD done because she ate lunch and was sedated due to self medicating per nursing staff. pt instructed to only take medication given by nurses and needs ct abd pelvis this am adn MRCP. she needs to be NPO. - Past Medical Family Social History Past Med/Fam/Surg Hx: No changes since H&P Allergies: Allergies morphine Allergy (Verified 09/07/16 17:22) prochlorperazine [From Compazine] Allergy (Verified 09/07/16 17:22) Sulfa (Sulfonamide Antibiotics) [SULFA] Allergy (Verified 09/07/16 17:22) - Review of Systems ROS: No change since H&P - Vital Signs and I&O's Vital Signs: Temperature 98 F Pulse Rate [Right Brachial] 58 Pulse Rate [Brachial] 69 Respiratory Rate 18 Blood Pressure [Right Arm] 120/76 Blood Pressure [Left Arm] 141/76 O2 Sat by Pulse Oximetry 92 Intake and Output: Intake & Output 09/08/16 09/09/16 09/10/16 09/11/16 11:59 11:59 11:59 11:59 Intake Total 2220 3284 1160 590 Balance 2220 3284 1160 590 - Physical Exam Oriented: Normal Eyes: Normal Ear: Normal Nose: Normal Throat: Normal Respiratory: Diminished Cardiovascular: Tachycardia Auscultation: Bowel Sounds: Normal Tenderness: RUQ, LUQ, Epigastric Skin: Normal Musculoskeletal: Normal, Back:Lumbar Psychiatric: Anxiety, Depression Speech Pattern: Clear - Laboratory and Diagnostics Result Diagrams: 09/10/16 04:00 09/10/16 04:00 Labs: Laboratory WBC 6.5 X10^3/uL (3.6-10.0) 09/10/16 04:00 RBC 3.23 X10^6/uL (3.5-5.4) L 09/10/16 04:00 Hgb 7.6 g/dL (12.0-16.0) L 09/10/16 04:00 Hct 24.4 % (36.0-47.0) L 09/10/16 04:00 MCV 75.5 fL (80.0-100.0) L 09/10/16 04:00 MCH 23.6 pg (27.0-34.0) L 09/10/16 04:00 MCHC 31.2 g/dL (33.0-35.0) L 09/10/16 04:00 RDW 22.3 % (11.6-16.5) H 09/10/16 04:00 Plt Count 255 X10^3/uL (150.0-450.0) 09/10/16 04:00 Plt Count Comment Adequate (ADEQUATE) 09/10/16 04:00 MPV 10.4 fL (7.4-11.0) 09/10/16 04:00 Neut % 74.0 % (42.0-75.0) 09/10/16 04:00 Lymph % 13.5 % (21.0-51.0) L 09/10/16 04:00 [place] % 6.6 % (0.0-13.0) 09/10/16 04:00 Eos % 5.1 % (0.9-2.9) H 09/10/16 04:00 Baso % 0.8 % (0.2-1.0) 09/10/16 04:00 Neut # 4.8 x10^3/uL (2.2-4.8) 09/10/16 04:00 Lymph # 0.9 X10^3/uL (1.3-2.9) L 09/10/16 04:00 [place] # 0.4 x10^3/uL (0.3-0.8) 09/10/16 04:00 Eos # 0.3 x10^3/uL (0.0-0.2) H 09/10/16 04:00 Baso # 0.1 X10^3/uL (0.0-0.1) 09/10/16 04:00 Absolute Nucleated RBC 0.0 /100WBC 09/10/16 04:00 Plt Morphology Comment Normal (NORMAL) 09/10/16 04:00 RBC Morphology Abnormal (NORMAL) A 09/10/16 04:00 Hypochromasia 1+ A 09/10/16 04:00 Poikilocytosis 1+ A 09/07/16 13:04 Anisocytosis 2+ A 09/10/16 04:00 Microcytosis 1+ A 09/07/16 13:04 INR Target Range - 09/07/16 13:04 INR 1.02 (0.8-1.3) 09/07/16 13:04 PTT 27.2 SECONDS (22.9-36.5) 09/07/16 13:04 PTT Comment - 09/07/16 13:04 D-Dimer 967 ng/mL (0-400) H* 09/07/16 13:04 Sodium 139 mmol/L (136-145) 09/10/16 04:00 Corrected Sodium TNP 09/10/16 04:00 Potassium 4.5 mmol/L (3.5-5.1) 09/10/16 04:00 Chloride 106 mmol/L (98-107) 09/10/16 04:00 Carbon Dioxide 26.5 mmol/L (21-32) 09/10/16 04:00 BUN 12 mg/dL (7-18) 09/10/16 04:00 Creatinine 0.91 mg/dL (0.55-1.02) 09/10/16 04:00 Est GFR (MDRD) Af Amer > 60 (>60) 09/10/16 04:00 Est GFR (MDRD) Non-Af > 60 (>60) 09/10/16 04:00 Glucose 86 mg/dL (65-99) 09/10/16 04:00 Calcium 8.4 mg/dL (8.5-10.1) L 09/10/16 04:00 Corrected Calcium 9.4 mg/dL (8.5-10.1) 09/10/16 04:00 Magnesium 1.7 mg/dL (1.7-2.9) 09/07/16 13:04 Iron 14 ug/dL (50-175) L 09/08/16 04:00 Transferrin 291 mg/dL (202-364) 09/08/16 04:00 Ferritin 11 ng/mL (8-252) 09/08/16 04:00 Total Bilirubin 0.30 mg/dL (0.2-1.0) 09/10/16 04:00 AST 53 Units/L (15-37) H 09/10/16 04:00 ALT 72 Units/L (12-78) 09/10/16 04:00 Alkaline Phosphatase 323 Units/L (46-116) H 09/10/16 04:00 Creatine Kinase 75 Units/L (26-192) 09/07/16 13:04 CK-MB (CK-2) < 1.0 ng/mL (0-4.0) 09/07/16 13:04 CK/CKMB % Calc 1.3 % (<4) 09/07/16 13:04 Troponin I < 0.02 ng/mL (0-1.5) 09/07/16 13:04 Total Protein 6.4 g/dL (6.4-8.2) 09/10/16 04:00 Albumin 2.8 g/dL (3.4-5.0) L 09/10/16 04:00 Globulin 3.6 g/dL (2.5-4.5) 09/10/16 04:00 Albumin/Globulin Ratio 0.8 Ratio (1.1-2.1) L 09/10/16 04:00 Vitamin B12 340 pg/mL (193-986) 09/08/16 04:00 Folate 3.6 ng/mL (>8.6) L 09/08/16 04:00 Free T4 0.95 ng/dL (0.76-1.46) 09/08/16 04:00 TSH 3rd Generation 1.376 uIU/mL (0.358-3.74) 09/08/16 04:00 - Plan (1) Epigastric pain Status: Acute Plan: hx anemia, gastric bypass. elevated liver enzymes. NPO FOR MRCP AND CT ABD THIS AM. CONTINUE IV HYDRATION, PAIN AND NAUSEA CONTROL (2) Chest pain Status: Acute Qualifiers: Chest pain type: C Ischemic chest pain type: I Plan: deines cp this am, cardiacs normal. continue telemetry, bp monitoring. ECHO, lipid control (3) SVT (supraventricular tachycardia) Status: Acute Plan: bb therapy (4) Constipation Status: Acute Qualifiers: Constipation type: C Plan: pt reports, BM, will collect stool spec (5) Anemia Status: Acute Qualifiers: Anemia type: A Iron deficiency anemia type: I Vitamin B12 deficiency anemia type: V Folate deficiency anemia type: F Bone marrow failure anemia type: B Hemolytic anemia type: H Other causes of anemia: O Chronic kidney disease stage: C Plan: anemia PANEL
== END 2016-09-10 17:50 | disposition home or self-care (01) | DRG 313 ==
LOC: ER 12:46 → MED/SURG 16:24
PROVIDERS: ADMIT Internal Medicine; ATTEND Internal Medicine
DX: R07.89 Other chest pain (principal); I47.1 Supraventricular tachycardia; R94.31 Abnormal electrocardiogram [ECG] [EKG]; F32.89 Other specified depressive episodes; F41.8 Other specified anxiety disorders; R06.02 Shortness of breath; D64.89 Other specified anemias; Z98.84 Bariatric surgery status; R10.13 Epigastric pain; E11.65 Type 2 diabetes mellitus with hyperglycemia; R74.8 Abnormal levels of other serum enzymes
CPT/HCPCS: 36415; 71010; 71275; 74177; 74181; 80053; 82378; 82550; 82553; 82607; 82728; 82746; 83540; 83735; 84439; 84443; 84466; 84481; 84484; 85025; 85378; 85610; 85730; 93005; 93010; 94760; 96365; 96367; 96374; 99284; A4222; S0106; J3480

== ENCOUNTER 2016-11-09 17:28 | Emergency (ER) | payer OTHER, MEDICAID ==
[2016-11-09 17:41] VITALS: BMI 25.1
--- NOTE | 2016-11-09 17:41 | DR.GENAD ---
HPI - HPI Comment HPI Comment: PATIENT HAVE INCREASING DIZZINESS AND NEAR SYNCOPAL EPISODES SINCE YESTERDAY. HAVING HEADACHE. NO NAUSEA OR VOMITING. NO FEVER OR DYSURIA. CHEST SORENESS THAT HAVE RESOLVE. COUGHING, NON PRODUCTIVE. DENIES EAR INFECTION OR PAIN. NO POST NASAL DRIP. - Complaint/Symptoms Chief Complaint Doctors Comments: DIZZINESS, NEAR SYNCOPAL EPISODES SINCE YEASTERDAY. - Nurses notes reviewed Nurses Notes Review: Yes - Source History Provided: Patient - Mode of Arrival Mode of Arrival: Ambulatory - Timing Came on: Suddenly - Duration Duration: Constant Duration: Days - Severity Severity: Moderate PMH - PMH Past Medical History: Anxiety, Depression Past Surgical History: Yes Surgical History: Cholecystectomy, Hysterectomy, Other - Family History Family Medical History: [place], Coronary Artery Disease - Social History Do you use any recreational Drugs:: No ROS - Review of Systems Constitutional: Weakness, Fatigue. negative: Chills, Fever, Malaise Eyes: No Symptoms Reported. negative: Eye Pain, Blurred Vision, Discharge ENTM: negative: Ear Pain, Nose Discharge, Nose Congestion, Throat Pain Respiratoy: negative: Productive Cough, Non-Productive Cough, Short of Breath, Wheezing, Hemoptysis Cardiovascular: No Symptoms Reported. negative: Syncope (NEAR SYNCOPE) Gastrointestinal/Abdominal: No Symptoms Reported. negative: Abdominal Pain, Diarrhea, Nausea, Vomiting Genitourinary: No Symptoms Reported. negative: Dysuria, Frequency, Hematuria Neurological: Headache, Weakness, Dizziness Musculoskeletal: Muscle Pain Integumentary: No Symptoms Reported Hematologic/Lymphatic: No Symptoms Reported Endocrine: No Symptoms Reported All Other Systems: Reviewed and Negative PE - Vital Signs Vitals: Temperature 98.4 F Pulse Rate 107 Respiratory Rate 18 Blood Pressure [Right Arm] 120/76 Blood Pressure [Left Arm] 141/76 Blood Pressure 132/92 O2 Sat by Pulse Oximetry 98 - General Limitations: No Limitations General Appearance: Alert - Head Head Exam: Normal Inspection - Eyes Eye exam: Normal Appearance, PERRL, EOMI. negative: Scleral Icterus, Conjunctival Injection, Nystagmus, Periorbital Swelling, Periorbital Tenderness - ENT ENT Exam: Normal Oropharynx, Normal External Ear Exam, Mucous Membranes Dry, TM 's Normal Bilaterally External Ear Exam: Normal External Inspection TM/Canal Exam: Bilateral Normal Nose Exam: Normal Nose Exam Mouth Exam: Normal Inspection Throat Exam: Normal Inspection - Neck Neck Exam: Trachea Midline - Chest Chest Inspection: Symmetric Chest Wall Rise - Respiratory Respiratory Exam: Normal Lung Sounds Bilat Respiratory Exam: Bilateral Clear to Auscultation - Cardiovascular Cardiovascular Exam: Regular Rate, Normal Rhythm, Normal Heart Sounds - Abdominal Exam Abdominal Exam: Normal Bowel Sounds, Soft. negative: Tenderness - Extremities Extremities Exam: Normal Inspection - Back Back Exam: Normal Inspection - Neurologic Neurological Exam: Alert, Oriented X3, CN II-XII Intact, Normal Gait, Reflexes Normal. negative: Motor Sensory Deficit - Psychiatric Psychiatric Exam: Normal Affect, Normal Mood - Skin Skin Exam: Normal Color [facility] - Differential Diagnosis Differential Diagnosis: CVA, TIA, MA, VERTIGO, ANEMIA, ELECTROLYTE ABNORMALITY, DEHYDRATION Course - Treatment Treatment: SEE ORDERS. - Education/Counseling Education/Counseling: Patient, Family, Education Educated On: Treatment, Diagnosis, Needs for Follow Up ROR - Labs Reviewed Laboratory Results Reviewed?: Yes Result Diagrams: 11/09/16 18:20 11/09/16 18:20 Laboratory: WBC 5.9 X10^3/uL (3.6-10.0) 11/09/16 18:20 RBC 3.97 X10^6/uL (3.5-5.4) 11/09/16 18:20 Hgb 9.7 g/dL (12.0-16.0) L 11/09/16 18:20 Hct 31.0 % (36.0-47.0) L 11/09/16 18:20 MCV 78.0 fL (80.0-100.0) L 11/09/16 18:20 MCH 24.3 pg (27.0-34.0) L 11/09/16 18:20 MCHC 31.2 g/dL (33.0-35.0) L 11/09/16 18:20 RDW 20.7 % (11.6-16.5) H 11/09/16 18:20 Plt Count 311 X10^3/uL (150.0-450.0) 11/09/16 18:20 Plt Count Comment Adequate (ADEQUATE) 11/09/16 18:20 MPV 11.2 fL (7.4-11.0) H 11/09/16 18:20 Neut % 52.6 % (42.0-75.0) 11/09/16 18:20 Lymph % 32.0 % (21.0-51.0) 11/09/16 18:20 [place] % 7.2 % (0.0-13.0) 11/09/16 18:20 Eos % 7.9 % (0.9-2.9) H 11/09/16 18:20 Baso % 0.3 % (0.2-1.0) 11/09/16 18:20 Neut # 3.1 x10^3/uL (2.2-4.8) 11/09/16 18:20 Lymph # 1.9 X10^3/uL (1.3-2.9) 11/09/16 18:20 [place] # 0.4 x10^3/uL (0.3-0.8) 11/09/16 18:20 Eos # 0.5 x10^3/uL (0.0-0.2) H 11/09/16 18:20 Baso # 0.0 X10^3/uL (0.0-0.1) 11/09/16 18:20 Absolute Nucleated RBC 0.0 /100WBC 11/09/16 18:20 Plt Morphology Comment Normal (NORMAL) 11/09/16 18:20 RBC Morphology Abnormal (NORMAL) A 11/09/16 18:20 Hypochromasia Slight A 11/09/16 18:20 Anisocytosis 1+ A 11/09/16 18:20 Sodium 142 mmol/L (136-145) 11/09/16 18:20 Corrected Sodium TNP 11/09/16 18:20 Potassium 3.9 mmol/L (3.5-5.1) 11/09/16 18:20 Chloride 110 mmol/L (98-107) H 11/09/16 18:20 Carbon Dioxide 26.0 mmol/L (21-32) 11/09/16 18:20 BUN 12 mg/dL (7-18) 11/09/16 18:20 Creatinine 0.88 mg/dL (0.55-1.02) 11/09/16 18:20 Est GFR (MDRD) Af Amer > 60 (>60) 11/09/16 18:20 Est GFR (MDRD) Non-Af > 60 (>60) 11/09/16 18:20 Glucose 85 mg/dL (65-99) 11/09/16 18:20 Calcium 8.6 mg/dL (8.5-10.1) 11/09/16 18:20 Corrected Calcium 9.2 mg/dL (8.5-10.1) 11/09/16 18:20 Total Bilirubin 0.20 mg/dL (0.2-1.0) 11/09/16 18:20 AST 38 Units/L (15-37) H 11/09/16 18:20 ALT 34 Units/L (12-78) 11/09/16 18:20 Alkaline Phosphatase 200 Units/L (46-116) H 11/09/16 18:20 Creatine Kinase 126 Units/L (26-192) 11/09/16 18:20 CK-MB (CK-2) < 1.0 ng/mL (0-4.0) 11/09/16 18:20 CK/CKMB % Calc 0.8 % (<4) 11/09/16 18:20 Troponin I < 0.02 ng/mL (0-1.5) 11/09/16 18:20 Total Protein 6.5 g/dL (6.4-8.2) 11/09/16 18:20 Albumin 3.2 g/dL (3.4-5.0) L 11/09/16 18:20 Globulin 3.3 g/dL (2.5-4.5) 11/09/16 18:20 Albumin/Globulin Ratio 1.0 Ratio (1.1-2.1) L 11/09/16 18:20 Specimen Type Clean catch urine 11/09/16 18:18 Urine Color Yellow (YELLOW) 11/09/16 18:18 Urine Appearance Slightly hazy (CLEAR) 11/09/16 18:18 Urine pH 6.0 (5.0 - 8.0) 11/09/16 18:18 Ur Specific [place] 1.015 (1.000-1.030) 11/09/16 18:18 Urine Protein 1+ (NEGATIVE) 11/09/16 18:18 Urine Glucose (UA) Negative (NEGATIVE) 11/09/16 18:18 Urine Ketones Negative (NEGATIVE) 11/09/16 18:18 Urine Occult Blood 2+ (NEGATIVE) 11/09/16 18:18 Urine Nitrite Negative (NEGATIVE) 11/09/16 18:18 Urine Bilirubin Negative (NEGATIVE) 11/09/16 18:18 Urine Urobilinogen 1+ (NORMAL) 11/09/16 18:18 Ur Leukocyte Esterase 1+ (NEGATIVE) 11/09/16 18:18 Urine RBC 0-3 /HPF (NEGATIVE) 11/09/16 18:18 Urine WBC 6-8 /HPF (NEGATIVE) 11/09/16 18:18 Ur Squamous Epith Cells Rare /HPF (NEGATIVE) 11/09/16 18:18 Calcium Oxalate Crystal Many /HPF (NEGATIVE) 11/09/16 18:18 Urine Bacteria 1+ /HPF (NEGATIVE) 11/09/16 18:18 Urine Mucus Few /HPF (NEGATIVE) 11/09/16 18:18 Ur Culture Indicated? Yes/culture set up 11/09/16 18:18 - XRAY XRAY Findings: REPORT DISCUSS WITH PATIENT. - EKG Rhythm: NSR (EKG NOTED.) - Diagnosis Discharge Problem: Dizziness UTI (urinary tract infection) Qualifiers: Urinary tract infection type: site unspecified Hematuria presence: without hematuria Qualified Code(s): N39.0 - Urinary tract infection, site not specified - Discharge Plan Disposition: 01 HOME, SELF-CARE Condition: Stable Prescriptions: Ciprofloxacin HCl [CIPRO 500 MG TAB *] 500 mg PO Q12H #20 tab - Follow ups/Referrals Follow ups/Referrals: NFD,None [Primary Care Provider] - 3 days - Instructions Instructions: Urinary Tract Infection, Adult, [id number], Dizziness, Easy-to- Read
[2016-11-09 17:42] VITALS: BP 132/92
[2016-11-09] MEDS ORDERED: NS 1000 ML 1,000 ML IV ONE (18:10)
[2016-11-09] MEDS ORDERED: NS 1000 ML 1,000 ML ONE (18:11)
[2016-11-09 18:35] LABS: BASOPHILS % (AUTO) 0.3 % (0.2-1.0); EOSINOPHILS # (AUTO) 0.5 x10^3/uL (0.0-0.2); EOSINOPHILS % (AUTO) 7.9 % (0.9-2.9); HEMOGLOBIN 9.7 g/dL (12.0-16.0); LYMPHOCYTES # (AUTO) 1.9 X10^3/uL (1.3-2.9); MEAN CORPUSCULAR HEMOGLOBIN 24.3 pg (27.0-34.0); MEAN CORPUSCULAR HGB CONC 31.2 g/dL (33.0-35.0); MEAN PLATELET VOLUME 11.2 fL (7.4-11.0); MONOCYTES # (AUTO) 0.4 x10^3/uL (0.3-0.8); MONOCYTES % (AUTO) 7.2 % (0.0-13.0); NEUTROPHILS # (AUTO) 3.1 x10^3/uL (2.2-4.8); NEUTROPHILS % (AUTO) 52.6 % (42.0-75.0); PLATELET COUNT 311 X10^3/uL (150.0-450.0); RED BLOOD COUNT 3.97 X10^6/uL (3.5-5.4); RED CELL DISTRIBUTION WIDTH 20.7 % (11.6-16.5); WHITE BLOOD COUNT 5.9 X10^3/uL (3.6-10.0)
[2016-11-09 18:36] LABS: BILIRUBIN,URINE NEGATIVE (NEGATIVE); BLOOD/HEMOGLOBIN,URINE 2+ (NEGATIVE); GLUCOSE, URINE NEGATIVE (NEGATIVE); KETONES,URINE NEGATIVE (NEGATIVE); LEUKOCYTE ESTERASE ,URINE 1+ (NEGATIVE); NITRITES,URINE NEGATIVE (NEGATIVE); PROTEIN,URINE 1+ (NEGATIVE); UROBILINOGEN,URINE 1+ (NORMAL)
[2016-11-09 18:47] LABS: APPEARANCE,URINE SLIGHTLY HAZY (CLEAR); COLOR,URINE YELLOW (YELLOW)
[2016-11-09 18:48] LABS: BACTERIA,URINE 1+ /HPF (NEGATIVE); CALCIUM OXALATE CRYSTALS,UR MANY /HPF (NEGATIVE); RBC,URINE 0-3 /HPF (NEGATIVE); SQUAMOUS EPITHELIAL CELL,UR RARE /HPF (NEGATIVE)
[2016-11-09 18:49] LABS: MUCUS,URINE FEW /HPF (NEGATIVE)
[2016-11-09 19:02] LABS: PLATELET MORPHOLOGY COMMENT NORMAL (NORMAL)
[2016-11-09 19:03] LABS: ANISOCYTOSIS 1+; HYPOCHROMASIA SLIGHT
[2016-11-09 19:20] LABS: ALANINE AMINOTRANSFERASE 34 Units/L (12-78); ALBUMIN 3.2 g/dL (3.4-5.0); ALKALINE PHOSPHATASE 200 Units/L (46-116); ASPARTATE AMINO TRANSFERASE 38 Units/L (15-37); BLOOD UREA NITROGEN 12 mg/dL (7-18); CALCIUM 8.6 mg/dL (8.5-10.1); CHLORIDE 110 mmol/L (98-107); COR CA(FOR HYPOALB) 9.2 mg/dL (8.5-10.1); CREATININE 0.88 mg/dL (0.55-1.02); SODIUM 142 mmol/L (136-145); TOTAL PROTEIN 6.5 g/dL (6.4-8.2); eGFR BLACK RACES > 60 (>60); eGFR NON BLACK RACES > 60 (>60)
--- NOTE | 2016-11-09 19:29 | CT ---
EXAM: CT BRAIN WITHOUT CONTRAST INDICATION: Dizziness COMPARISION: No Priors TECHNIQUE: Routine axial CT of the brain was performed without intravenous contrast. FINDINGS: The cerebral and cerebellar cortex are normal. The ventricular system is nondilated. No intra or extr a-axial mass or hemorrhage. The lima-white junction is preserved. There is no evidence of subacute is chemic change. The basilar cisterns are clear. The skull is intact. The mastoid air cells are clear. IMPRESSION: Normal brain CT examination Reported By:
--- NOTE | 2016-11-09 19:36 | RAD ---
EXAM: Chest X-ray INDICATION: Chest pain COMPARISION: Prior exam from September 07, 2016 TECHNIQUE: AP, single view FINDINGS: The lungs are clear in the lung volumes are within normal limits. No pleural effusion or pneumothorax . The cardiac silhouette and mediastinum are normal. The regional skeleton is intact. IMPRESSION: Normal Chest X-Ray Reported By:
[2016-11-09 19:37] LABS: CREATINE KINASE 126 Units/L (26-192); TROPONIN I < 0.02 ng/mL (0-1.5)
[2016-11-09 22:11] LABS: CKMB % 0.8 % (<4); CREATINE KINASE MB < 1.0 ng/mL (0-4.0)
== END 2016-11-09 20:30 | disposition home or self-care (01) ==
LOC: ER 17:48
DX: N39.0 Urinary tract infection, site not specified (principal); R42 Dizziness and giddiness; B96.29 Other Escherichia coli [E. coli] as the cause of diseases classified elsewhere
CPT/HCPCS: 36415; 70450; 71010; 80053; 81001; 82550; 82553; 84484; 85025; 87086; 87088; 87186; 93005; 93010; 96365; 99283; A4222

== ENCOUNTER 2016-12-19 18:57 | Inpatient (IN) | payer OTHER, MEDICAID ==
[2016-12-19] MEDS ORDERED: ADENOCARD INJ 6 MG ONE (19:02)
[2016-12-19] MEDS ORDERED: NS 1000 ML 1,000 ML IV SCH ×2 (19:03→21:00)
[2016-12-19] MEDS ORDERED: NS 1000 ML 1,000 ML ONE ×2 (19:03→19:05)
[2016-12-19] MEDS ORDERED: ADENOCARD INJ 6 MG IVP ONE (19:05)
--- NOTE | 2016-12-19 19:12 | DR.GENAD ---
HPI - Complaint/Symptoms Chief Complaint Doctors Comments: Patient states that her heart has been racing all day; she thought it would stop. She has a history of SVT. She takes no medication PMH - PMH Past Medical History: Anxiety, Depression Past Surgical History: Yes Surgical History: Cholecystectomy, Hysterectomy, Other - Family History Family Medical History: [place], Coronary Artery Disease - Social History Do you use any recreational Drugs:: No ROS - Review of Systems Eyes: No Symptoms Reported ENTM: No Symptoms Reported Respiratoy: No Symptoms Reported Cardiovascular: See HPI, Palpitations Gastrointestinal/Abdominal: No Symptoms Reported Genitourinary: No Symptoms Reported Neurological: No Symptoms Reported Musculoskeletal: No Symptoms Reported Integumentary: No Symptoms Reported Hematologic/Lymphatic: No Symptoms Reported Endocrine: No Symptoms Reported Psychiatric: No Symptoms Reported All Other Systems: Reviewed and Negative PE - Vital Signs Vitals: Temperature 98.2 F Pulse Rate [Apical] 91 Pulse Rate 182 Respiratory Rate 16 Blood Pressure [Right Arm] 108/73 Blood Pressure [Left Arm] 141/76 Blood Pressure 105/62 O2 Sat by Pulse Oximetry 100 - General General Appearance: Alert, Anxious - Head Head Exam: Normal Inspection, Atraumatic - Eyes Eye exam: Normal Appearance, PERRL, EOMI - ENT ENT Exam: Normal Exam External Ear Exam: Normal External Inspection TM/Canal Exam: Bilateral Normal Nose Exam: Normal Nose Exam Mouth Exam: Normal Inspection Throat Exam: Normal Inspection - Neck Neck Exam: Normal Inspection - Chest Chest Inspection: Normal Inspection - Respiratory Respiratory Exam: Normal Lung Sounds Bilat Respiratory Exam: Bilateral Clear to Auscultation - Cardiovascular Cardiovascular Exam: Tachycardia - Abdominal Exam Abdominal Exam: Normal Inspection, Normal Bowel Sounds Abdominal Tenderness: negative: RUQ, RLQ, LUQ, LLQ, Epigastrium, Suprapubic, Diffuse, Mild, Moderate, Severe, Other - Extremities Extremities Exam: Normal Inspection - Back Back Exam: Normal Inspection - Neurologic Neurological Exam: Alert, Oriented X3, CN II-XII Intact - Psychiatric Psychiatric Exam: Normal Affect - Skin Skin Exam: Warm, Dry, Intact Course - Treatment Treatment: Converted to regular rate s/p adenosine 6mg IV - Reevaluation 1st: Improved - Consultation Called: 20:00 ROR - Labs Reviewed Result Diagrams: 12/19/16 19:10 12/19/16 19:10 Laboratory: WBC 9.7 X10^3/uL (3.6-10.0) 11/10/17 19:10 RBC 3.84 X10^6/uL (3.5-5.4) 12/19/16 19:10 Hgb 9.3 g/dL (12.0-16.0) L 12/19/16 19:10 Hct 29.6 % (36.0-47.0) L 12/19/16 19:10 MCV 77.0 fL (80.0-100.0) L 12/19/16 19:10 MCH 24.1 pg (27.0-34.0) L 12/19/16 19:10 MCHC 31.3 g/dL (33.0-35.0) L 12/19/16 19:10 RDW 20.2 % (11.6-16.5) H 12/19/16 19:10 Plt Count 274 X10^3/uL (150.0-450.0) 12/19/16 19:10 Plt Count Comment Adequate (ADEQUATE) 12/19/16 19:10 MPV 10.7 fL (7.4-11.0) 12/19/16 19:10 Neut % 59.6 % (42.0-75.0) 12/19/16 19:10 Lymph % 29.2 % (21.0-51.0) 12/19/16 19:10 [place] % 8.4 % (0.0-13.0) 12/19/16 19:10 Eos % 2.3 % (0.9-2.9) 12/19/16 19:10 Baso % 0.5 % (0.2-1.0) 12/19/16 19:10 Neut # 5.8 x10^3/uL (2.2-4.8) H 12/19/16 19:10 Lymph # 2.8 X10^3/uL (1.3-2.9) 12/19/16 19:10 [place] # 0.8 x10^3/uL (0.3-0.8) 12/19/16 19:10 Eos # 0.2 x10^3/uL (0.0-0.2) 12/19/16 19:10 Baso # 0.1 X10^3/uL (0.0-0.1) 12/19/16 19:10 Absolute Nucleated RBC 0.1 /100WBC 12/19/16 19:10 Nucleated RBCs Parts Consultant 12/19/16 19:10 Atypical Lymphocytes Parts Consultant 12/19/16 19:10 Blast Cells Parts Consultant 12/19/16 19:10 Smudge Cells Parts Consultant 12/19/16 19:10 Toxic Granulation Parts Consultant 12/19/16 19:10 Dohle Bodies Parts Consultant 12/19/16 19:10 Олег Rods Parts Consultant 12/19/16 19:10 Plt Clumps, EDTA Parts Consultant 12/19/16 19:10 Giant Platelets Parts Consultant 12/19/16 19:10 Plt Morphology Comment Normal (NORMAL) 12/19/16 19:10 RBC Morphology Abnormal (NORMAL) A 12/19/16 19:10 Dimorphic RBCs Parts Consultant 12/19/16 19:10 Polychromasia Parts Consultant 12/19/16 19:10 Hypochromasia Parts Consultant 12/19/16 19:10 Poikilocytosis Parts Consultant 12/19/16 19:10 Basophilic Stippling Parts Consultant 12/19/16 19:10 Anisocytosis 1+ A 12/19/16 19:10 Microcytosis Parts Consultant 12/19/16 19:10 Macrocytosis Parts Consultant 12/19/16 19:10 Spherocytes Parts Consultant 12/19/16 19:10 Pappenheimer Bodies Parts Consultant 12/19/16 19:10 Sickle Cells Parts Consultant 12/19/16 19:10 Target Cells Parts Consultant 12/19/16 19:10 Tear Drop Cells Parts Consultant 12/19/16 19:10 Ovalocytes Parts Consultant 12/19/16 19:10 Stomatocytes Parts Consultant 12/19/16 19:10 Helmet Cells Parts Consultant 12/19/16 19:10 Sanz-Utting Bodies Parts Consultant 12/19/16 19:10 [place] Rings Parts Consultant 12/19/16 19:10 Veronica Cells Parts Consultant 12/19/16 19:10 Crenated Cell Parts Consultant 12/19/16 19:10 Acanthocytes (Spur) Parts Consultant 12/19/16 19:10 Rouleaux Parts Consultant 12/19/16 19:10 Schistocytes Parts Consultant 12/19/16 19:10 INR Target Range - 12/19/16 19:10 INR 1.00 (0.8-1.3) 12/19/16 19:10 PTT 24.1 SECONDS (22.9-36.5) 12/19/16 19:10 PTT Comment - 12/19/16 19:10 Sodium 142 mmol/L (136-145) 12/19/16 19:10 Corrected Sodium TNP 12/19/16 19:10 Potassium 3.2 mmol/L (3.5-5.1) L 12/19/16 19:10 Chloride 108 mmol/L (98-107) H 12/19/16 19:10 Carbon Dioxide 20.6 mmol/L (21-32) L 12/19/16 19:10 BUN 18 mg/dL (7-18) 12/19/16 19:10 Creatinine 1.16 mg/dL (0.55-1.02) H 12/19/16 19:10 Est GFR (MDRD) Af Amer > 60 (>60) 12/19/16 19:10 Est GFR (MDRD) Non-Af 52 (>60) L 12/19/16 19:10 Glucose 95 mg/dL (65-99) 12/19/16 19:10 Calcium 9.3 mg/dL (8.5-10.1) 12/19/16 19:10 Corrected Calcium 10.2 mg/dL (8.5-10.1) H 12/19/16 19:10 Magnesium 1.6 mg/dL (1.7-2.9) L 12/19/16 19:10 Total Bilirubin 0.20 mg/dL (0.2-1.0) 12/19/16 19:10 AST 33 Units/L (15-37) 12/19/16 19:10 ALT 31 Units/L (12-78) 12/19/16 19:10 Alkaline Phosphatase 193 Units/L (46-116) H 12/19/16 19:10 Creatine Kinase 93 Units/L (26-192) 12/19/16 19:10 CK-MB (CK-2) < 1.0 ng/mL (0-4.0) 12/19/16 19:10 CK/CKMB % Calc 1.1 % (<4) 12/19/16 19:10 Troponin I < 0.02 ng/mL (0-1.5) 12/19/16 19:10 Total Protein 7.0 g/dL (6.4-8.2) 12/19/16 19:10 Albumin 2.9 g/dL (3.4-5.0) L 12/19/16 19:10 Globulin 4.1 g/dL (2.5-4.5) 12/19/16 19:10 Albumin/Globulin Ratio 0.7 Ratio (1.1-2.1) L 12/19/16 19:10 - XRAY XRAY Interpreted by: Radiologist (Chest; No acute cardiopulmonary disease) - Diagnosis Discharge Problem: SVT (supraventricular tachycardia) - Discharge Plan Condition: Stable - Follow ups/Referrals Follow ups/Referrals: NFD,None [Primary Care Provider] - 3 days - Instructions
[2016-12-19 19:31] LABS: BASOPHILS # (AUTO) 0.1 X10^3/uL (0.0-0.1); BASOPHILS % (AUTO) 0.5 % (0.2-1.0); EOSINOPHILS # (AUTO) 0.2 x10^3/uL (0.0-0.2); EOSINOPHILS % (AUTO) 2.3 % (0.9-2.9); HEMATOCRIT 29.6 % (36.0-47.0); HEMOGLOBIN 9.3 g/dL (12.0-16.0); LYMPHOCYTES # (AUTO) 2.8 X10^3/uL (1.3-2.9); LYMPHOCYTES % (AUTO) 29.2 % (21.0-51.0); MEAN CORPUSCULAR HEMOGLOBIN 24.1 pg (27.0-34.0); MEAN CORPUSCULAR HGB CONC 31.3 g/dL (33.0-35.0); MEAN PLATELET VOLUME 10.7 fL (7.4-11.0); MONOCYTES # (AUTO) 0.8 x10^3/uL (0.3-0.8); MONOCYTES % (AUTO) 8.4 % (0.0-13.0); NEUTROPHILS # (AUTO) 5.8 x10^3/uL (2.2-4.8); NEUTROPHILS % (AUTO) 59.6 % (42.0-75.0); PLATELET COUNT 274 X10^3/uL (150.0-450.0); RED BLOOD COUNT 3.84 X10^6/uL (3.5-5.4); RED CELL DISTRIBUTION WIDTH 20.2 % (11.6-16.5); WHITE BLOOD COUNT 9.7 X10^3/uL (3.6-10.0)
--- NOTE | 2016-12-19 19:34 | RAD ---
AP Chest Indication: Chest pain Comparison: 11/09/2016 Findings: The trachea is midline. The cardiac silhouette is unremarkable. The lungs are clear without focal i nfiltrate or effusion. The bony thorax is unremarkable. IMPRESSION: 1. No acute cardiopulmonary abnormality. Reported By:
[2016-12-19 19:43] LABS: ANISOCYTOSIS 1+; BLOOD UREA NITROGEN 18 mg/dL (7-18); CALCIUM 9.3 mg/dL (8.5-10.1); CARBON DIOXIDE 20.6 mmol/L (21-32); CHLORIDE 108 mmol/L (98-107); CREATININE 1.16 mg/dL (0.55-1.02); PLATELET MORPHOLOGY COMMENT NORMAL (NORMAL); SODIUM 142 mmol/L (136-145); TROPONIN I < 0.02 ng/mL (0-1.5); eGFR BLACK RACES > 60 (>60); eGFR NON BLACK RACES 52 (>60)
[2016-12-19 19:47] LABS: ALANINE AMINOTRANSFERASE 31 Units/L (12-78); ALBUMIN 2.9 g/dL (3.4-5.0); ALKALINE PHOSPHATASE 193 Units/L (46-116); ASPARTATE AMINO TRANSFERASE 33 Units/L (15-37); CKMB % 1.1 % (<4); COR CA(FOR HYPOALB) 10.2 mg/dL (8.5-10.1); CREATINE KINASE 93 Units/L (26-192); CREATINE KINASE MB < 1.0 ng/mL (0-4.0); MAGNESIUM 1.6 mg/dL (1.7-2.9)
[2016-12-19] MEDS ORDERED: K-LYTE EFFERVESCENT PO STA (20:12)
[2016-12-19] MEDS ORDERED: K-LYTE EFFERVESCENT PO ONE (20:12)
[2016-12-19] MEDS ORDERED: K-LYTE EFFERVESCENT ONE (20:13)
[2016-12-19 22:15] VITALS: BMI 23.8
[2016-12-20 01:16] LABS: CKMB % 1.4 % (<4); CREATINE KINASE 74 Units/L (26-192); CREATINE KINASE MB < 1.0 ng/mL (0-4.0); TROPONIN I 0.07 ng/mL (0-1.5)
[2016-12-20 06:12] LABS: BASOPHILS % (AUTO) 0.6 % (0.2-1.0); EOSINOPHILS # (AUTO) 0.2 x10^3/uL (0.0-0.2); HEMOGLOBIN 8.1 g/dL (12.0-16.0); LYMPHOCYTES # (AUTO) 1.5 X10^3/uL (1.3-2.9); LYMPHOCYTES % (AUTO) 32.1 % (21.0-51.0); MEAN CORPUSCULAR HGB CONC 31.2 g/dL (33.0-35.0); MEAN CORPUSCULAR VOLUME 76.9 fL (80.0-100.0); MEAN PLATELET VOLUME 10.7 fL (7.4-11.0); MONOCYTES # (AUTO) 0.3 x10^3/uL (0.3-0.8); MONOCYTES % (AUTO) 7.3 % (0.0-13.0); NEUTROPHILS # (AUTO) 2.7 x10^3/uL (2.2-4.8); PLATELET COUNT 205 X10^3/uL (150.0-450.0); RED BLOOD COUNT 3.38 X10^6/uL (3.5-5.4); RED CELL DISTRIBUTION WIDTH 20.1 % (11.6-16.5); WHITE BLOOD COUNT 4.8 X10^3/uL (3.6-10.0)
[2016-12-20 06:18] VITALS: BP 122/73
[2016-12-20 06:26] LABS: ALANINE AMINOTRANSFERASE 27 Units/L (12-78); ALBUMIN 2.9 g/dL (3.4-5.0); ALKALINE PHOSPHATASE 180 Units/L (46-116); ASPARTATE AMINO TRANSFERASE 26 Units/L (15-37); BLOOD UREA NITROGEN 16 mg/dL (7-18); CALCIUM 8.9 mg/dL (8.5-10.1); CARBON DIOXIDE 27.7 mmol/L (21-32); CHLORIDE 110 mmol/L (98-107); CHOL/HDL RATIO 2.5 (0.0-5.0); CHOLESTEROL 141 mg/dL (0-200); COR CA(FOR HYPOALB) 9.8 mg/dL (8.5-10.1); CREATININE 0.77 mg/dL (0.55-1.02); HDL CHOLESTEROL 56 mg/dL (40-60); SODIUM 143 mmol/L (136-145); TOTAL PROTEIN 6.2 g/dL (6.4-8.2); TRIGLYCERIDES 46 mg/dL (0-150); eGFR BLACK RACES > 60 (>60); eGFR NON BLACK RACES > 60 (>60)
[2016-12-20 07:03] LABS: ANISOCYTOSIS 1+; HYPOCHROMASIA SLIGHT; PLATELET MORPHOLOGY COMMENT NORMAL (NORMAL)
--- NOTE | 2016-12-29 19:15 | DR.CARTERS ---
Short Stay Summary - Short Stay Summary for: Short Stay Summary for Date of:: 12/20/16 - Admission Date Date of Admission: 12/19/16 - Discharge Date Discharge Date: 12/20/16 - Admission Diagnoses (1) SVT (supraventricular tachycardia) Status: Acute - Hospital Course Hospital Course: IS A 56 YEAR OLD PATIENT OF OURS WHO PRESENTED TO THE ER WITH COMPLAINTS OF FEELING LIKE HER HEART HAD BEEN RACING ALL DAY. PATIENT REPORTED A HISTORY OF SVT, BUT DENIES USE OF ANTIARRYTHMICS. PATIENT WAS PLACED ON THE MANAGER PROGRAMMING WHERE A HEARTRATE IN THE 180S WAS NOTED. PATIENT WAS PLACED ON SUPPLEMENTAL OXYGEN VIA NASAL CANNULA. ON EXAMINATION, RAPID HEARTRATE NOTED. LUNGS NOTED TO BE CLEAR TO AUSCULTATION. ABDOMEN ROUND, SOFT, AND NON-TENDER WITH NORMAL BOWEL SOUNDS NOTED IN ALL QUADRANTS. ON ARRIVAL TO THE ER, HER VITAL SIGNS WERE [id number]%-105/62. LABS, CHEST XRAY, AND EKG WERE OBTAINED. ABNORMAL LAB VALUES INCLUDE THE FOLLOWING: HGB 9.3, HCT 29.6, POTASSIUM 3.2, CHLORIDE 108, CARBON DIOXIDE 20.6, CREATIINE 1.16, GFR 52, MAGNESIUM 1.6, ALK PHOS 193, ALBUMIN 2.9. CARDIAC ENZYMES WERE UNREMARKABLE. EKG REPORTED SUPRAVENTRICULAR TACHYCARDIA WITH HR 177. CHEST XRAY REPORTED NO ACUTE CARDIOPULMONARY ABNORMALITY. PATIENT WAS GIVEN ADENOSINE 6MG IVP X 1. A DECREASE IN HR TO 95 AND NORMAL SINUS RHYTHM WAS NOTED AFTER THE ADENOSINE WAS GIVEN. PATIENT WAS ADMITTED TO ICU FOR FURTHER TREATMENT AND EVAULATION. SHE WAS STARTED ON NORMAL SALINE AT 80 ML/HR. WE PLANNED TO OBTAIN SERIAL CARDIAC ENZYMES AND EKGS. WE PLANNED TO FOLLOW UP WITH AM LABS AND CONTINUE TO MONITOR PATIENT. AFTER ADMISSION. PATIENT REMAINED WITHOUT FURTHER INCIDENTS OF SVT. CARDIAC ENZYMES AND EKGS WERE UNREMARKABLE. AT APPROXIMATELY 0530, PATIENT INSISTED TO SIGN OUT OF THE HOSPITAL AGAINST MEDICAL ADVICE. PATIENT WAS INFORMED OF RISKS OF SIGNING OUT AGAINST MEDICAL ADVICE. SHE VERBALIZED UNDERSTANDING. PATIENT LEFT HOSPITAL IN STABLE CONDITION WITH FAMILY AT 0600. - Discharge Medications Discharge Medications: Escitalopram Oxalate [Lexapro 20 mg] 20 mg PO DAILY 12/19/16 [History] Gabapentin [NEURONTIN CAP 400 MG *] 800 mg PO BID 12/19/16 [History] - Discharge Plan Disposition: 07 AGAINST MEDICAL ADVICE Condition: Stable - Follow up/Referrals Follow up/Referrals: NFD,None [Primary Care Provider] - 3 days - Instructions Instructions: Paroxysmal Supraventricular Tachycardia, [id number]
== END 2016-12-20 06:00 | disposition left against medical advice (07) | DRG 310 ==
LOC: ER 19:05 → ICU 20:47
PROVIDERS: ADMIT Internal Medicine; ATTEND Internal Medicine
DX: I47.1 Supraventricular tachycardia (principal); R94.31 Abnormal electrocardiogram [ECG] [EKG]; D64.89 Other specified anemias; E87.6 Hypokalemia
CPT/HCPCS: 36415; 71010; 80053; 80061; 82550; 82553; 83735; 84132; 84484; 85025; 85610; 85730; 93005; 93041; 96365; 96367; 96374; 99283; 99285; A4222; J0150